=== PATIENT | female | born 2000 | race Caucasian/White ===

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

== ENCOUNTER 2020-01-15 17:05 | Emergency (ER) | payer MEDICAID, SELFPAY ==
[2020-01-15 17:06] VITALS: BP 116/66; PULSE 87; RESP 16; TEMP 36.7; O2SAT 97; BMI 34.1
[2020-01-15 19:28] LABS: Absolute Neutrophil Count 5.1 X10^3/uL (2.0-7.7); Basophil# 0.03 X10^3/uL; Basophil% 0.4 % (0-1); Eosinophil# 0.05 X10^3/uL; Eosinophils% 0.6 % (0-5); Hematocrit 38.6 % (37-47); Hemoglobin 12.7 g/dL (12.0-15.0); Lymphocyte % 23.1 % (19-41); Mean Corp Hgb Conc 32.9 g/dL (32-36); Mean Corpuscular Hgb 28.5 pg (27.0-32.0); Mean Corpuscular Volume 86.7 fL (81-99); Mean Platelet Vol. 10.3 fl (6.2-12.0); Monocyte# 0.76 X10^3/uL; Monocyte% 9.7 % (0-10); NRBC Flagged by Analyzer 0 % (0-5); Neutrophil # 5.14 X10^3/uL (2.7-7.7); Neutrophil % 65.9 % (47-70); Platelet Count 262 K/mm3 (150-450); RBC Distribution Width CV 13.1 % (11.6-14.6); Red Blood Count 4.45 M/mm3 (4.2-5.4); White Blood Count 7.8 K/mm3 (4.4-11.0)
[2020-01-15 19:41] LABS: BUN 9 mg/dL (7-18); Creatinine, Serum 0.78 mg/dL (0.55-1.02); Estimated Creatinine Clearance 139.23 ml/min; Glucose 93 mg/dL (74-106)
[2020-01-15 19:42] LABS: Anion Gap 6 (5-15); BUN/Creat Ratio 11.5 RATIO (10-20); Calcium,Total 9.2 mg/dL (8.5-10.1); Chloride 110 mmol/L (98-107); EST Glomerular Filtration Rate 99 mL/min (>60); Est Glom Filt Rate - Afr Amer 120 mL/min (>60); Potassium 3.6 mmol/L (3.5-5.1); Sodium Level 140 mmol/L (136-145)
[2020-01-15 20:10] LABS: Alcohol, Blood (Medical)-Serum < 3.0 mg/dL
[2020-01-15 20:18] LABS: Red Blood Cells-Urine 0 SEEN /hpf (0-5)
[2020-01-15 20:30] LABS: Color, Urine Yellow (Yellow); Glucose, Dipstick Normal (Normal); Ketone-Dipstick 50 mg/dl (Negative); Leukocyte Esterase-Dipstick 25 /ul (Negative); Nitrite-Dipstick Negative (Negative); Occult Blood-Urine Negative /ul (Negative); Protein-Dipstick 15 mg/dl (Negative); Specific Gravity, Urine 1.025 (1.002-1.030); Urine Bilirubin Dipstick Negative (Negative); Urine Clarity Clear (Clear); Urine Urobilinogen 4 mg/dl (Normal)
[2020-01-15 20:33] LABS: Internal QC Validated? YES +Cl - CLEAR BKGD; Pregnancy, Serum, hCG Quali. NEGATIVE Negative
[2020-01-15 20:35] LABS: Amphetamine Urine VISTA NEGATIVE (<1000 ng/mL); Barbiturate Urine VISTA NEGATIVE (< 200 ng/mL); Benzodiazepine Urine VISTA NEGATIVE (< 200 ng/mL); Cocaine Urine VISTA NEGATIVE (< 300 ng/mL); Ecstacy Urine VISTA NEGATIVE (< 500 ng/mL); Methadone Urine VISTA NEGATIVE (< 300 ng/mL); PCP Urine VISTA NEGATIVE (< 25 ng/mL); THC Urine VISTA NEGATIVE (< 50 ng/mL); Vista UDS pH Range 6
[2020-01-15 20:37] LABS: Bacteria 1+ /hpf (None Seen); Mucous, Urine 3+ /hpf (<or=2+); Squamous Epithelial Cells - UA 0-5 SEEN /hpf (5-10); White Blood Cells 0-5 SEEN /hpf (0-5)
--- NOTE | 2020-01-15 21:37 | ED.RN ---
PT REMAINS SITTING ON BED, DENIES NEEDS, NO SIGNS OF DISTRESS, PARENTS REMAIN AT BEDSIDE
--- NOTE | 2020-01-15 21:51 | ED.VISSUMM ---
- ER Visit Summary Date of Service: 01/15/20 Chief Complaint: Hallucinations History of Present Illness: The patient is a [address] Freeman. Parents report that the patient has a history of speech impairment and DiGeorge syndrome. States that when she was a kid she had imaginary friends never grew out of it. States that over the past 2 weeks the patient has admitted to them that she has been hearing voices. She seems to be arguing with these voices and is making so she is unable to sleep at night. She has an appointment to be seen at the counseling center on January 23. Patient denies any suicidal ideation. Physical Examination: Vitals: Stable. Afebrile. General: Well-nourished and well-developed. Head: Normocephalic atraumatic. Neck: Supple, no lymphadenopathy. No JVD. Nontender. Cardiovascular: Regular rate and rhythm. No murmurs. Respiratory: No respiratory distress. Clear to auscultation bilaterally. Abdominal: Soft, nontender, nondistended, normal bowel sounds. No guarding, rebound, or peritoneal signs. Back: Nontender. Extremities: Nontender, no edema. Skin: Normal color, no rash. Neurologic: Alert and oriented ?3. Cranial nerves II through XII are intact. Normal strength and sensation. Mental status exam: Patient appears their stated age. Good posture and grooming. Poor eye contact. Patient has a speech impairment and attempts to speak as little as possible. No suicidal or homicidal ideation. No visual hallucinations. Test Results: CBC is normal. Chem-7 shows a chloride of 110. UA is negative. test is negative. Talk screen and alcohol are normal. Emergency Department Course and Treatment: The patient was seen by case management in the emergency department. She did attempt to get her admitted to a psychiatric facility. However, with her being essentially nonverbal they did not want to accept her. This was also discussed with her parents who are nervous about her going somewhere without them. They have opted for treatment for home. Treatment Plan: Patient be discharged instructed to follow-up with counseling center soon as possible. Return to the emergency department for any worsening symptoms. Disposition: To home in improved and stable condition. Impression: 1. Depression. This note was generated with [employer] software. It may contain incorrect words, spelling, and punctuation that were not noted in review of the chart prior to signing ED Disposition - Plan for ED Patient: Disposition: Home or Assisted Living Instructions: Depression Referrals: Loren Patricio MD [Primary Care Provider] - As soon as possible Counseling,Center [GROUP OF PHYSICIANS] - As soon as possible
--- NOTE | 2020-01-15 22:06 | CM.ED ---
Social Work Consult: Mental Health Informant: Dr. Gamez Chief Complaint: Patient parents stating that patient is hearing voices. Patient tearful and is not responding to questions by this social service technician. Marital/Social history: Single. Patient adopted by parents at [age] year of age. Living Situation: Lives with parents, Fredrick Luna and Fausto Pérez. Support/Resources: None History: None Education/Employment: High School diploma. Patient did have IEP's in school. Patient parents are unsure of patient current understanding. Mental Health Treatment/History: No history. Patient mother stating that patient biological family has a mental health background but patient has not been diagnosed. Patient family did set up patient with an intake appointment with the Counseling [facility] on January 23, 2020. No history of inpatient psychiatric placement. Triggers/Stressors: Patient family unsure and communicating that patient has not been sleeping due to the voices speaking to patient. Risk to Self/Others: Patient family denies any patient behavior that puts patient at risk for harming self or others. Patient family stating that patient will become frustrated at times with voices but does not hurt self or participate in any self harm behaviors that patient family is aware of. Appearance/General Behavior: Clean. Tearful. Mood/Affect: Depressed. Communication Pattern: Does not initiate or respond to questions. Patient would look this social service technician in the eyes and mumble something towards this social service technician. Patient parents stating to be able to understand patient due to living with her all her life. Patient family believing that patient understands what is happening and where patient is. When patient would respond patient would respond with short answers such as, okay, and I don't know. Again patient responses were difficult to understand and patient parents did need to clarify what patient was saying. Majority of assessment completed with patient parents. Thought Process: Patient parent stating that patient is stating to have voices that patient is hearing. Patient does not confirm or denying hearing voices. Patient becoming tearful when this social service technician was speaking with patient about voices. Patient family stating that patient has voiced to patient parents that patient is hearing voices. General Intellectual Functioning: Below Average. Patient is not connected with the board of . Patient parents stating that patient is diagnosed with DiGeorge Syndrome. Judgement: Unable to evaluate Assessment: Met with patient and patient parents in room. Patient tearful and no responding to this social workers questions. Patient parents answering most/all assessment questions. Patient parents seeking help for patient. Patient mother stating that patient is not sleeping at night and seems to be getting more distressed due to voices and wanted to bring patient in for an evaluation. Educated patient parents on what an inpatient psychiatric placement could possibly look like for patient. Patient parents are unsure about inpatient placement due to the limited visiting hours and removing patient from familiar people. This social service technician inquiring if patient has been seen by primary care physician, patient family stating to have not brought patient to PCP as of yet. Patient family stating to feel safe with patient and are seeking help for the voices that patient is hearing. This social service technician validating patient/patient family emotions/feelings. Inquiring about guardianship status, patient is currently own person but patient family have been thinking about setting up guardianship. Collaborating with Dr. Gamez. At this time do not feel that patient is appropriate for inpatient psychiatric placement. Met with patient/patient parents in room again. Patient family agreeable to bring patient home and follow up with outpatient services. Patient family wanting to keep appointment with the Counseling Center on January 23, 2020 and plan to call patient primary care physician tomorrow. Provided patient mother with community counseling resources, and crisis hotline. This social service technician also encouraging patient mother to look into the [employer] as an option for further community support for patient. Patient mother voicing understanding to this and plan to follow up with this. No further questions asked at this time. PLAN: Discharge to home [facility]
== END 2020-01-15 22:14 | disposition home or self-care (01) ==
PROVIDERS: Emergency Provider Emergency Medicine; PCP Pediatrics
DX: F32.9 Major depressive disorder, single episode, unspecified (principal); D82.1 Di George's syndrome
CPT/HCPCS: 80048; 80307; 80320; 81001; 84703; 85025; 99282; G0480